=== PATIENT | female | born 1985 | race American Indian/Alaskan Native ===

== ENCOUNTER 2017-10-26 08:34 | Emergency (ER) | payer OTHER ==
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
[2017-10-26 11:07] VITALS: BP 113/71
== END 2017-10-26 11:06 | disposition home or self-care (01) ==
LOC: ED 08:34
DX: M79.1 Myalgia (principal); Z90.49 Acquired absence of other specified parts of digestive tract; V89.2XXA Person injured in unspecified motor-vehicle accident, traffic, initial encounter
CPT/HCPCS: 99282